=== PATIENT | female | born 1950 | race Asian ===

== ENCOUNTER 2019-12-14 09:03 | Day surgery (SDC) | payer OTHER ==
[2019-12-11 09:09] VITALS: BMI 23.8
[2019-12-14 10:02] VITALS: TEMP 97.9
--- NOTE | 2019-12-14 10:10 | HP ---
Satellite [facility] - Chief Complaint Chief Complaint: left wrist pain - Past Medical History Allergies/Adverse Reactions: Allergies Allergy/AdvReac Type Severity Reaction Status Date / Time No Known Allergies Allergy Verified 12/14/19 09:37 - Current Medications Current Medications: Home Medications Medication Instructions Recorded Amlodipine Besylate 10 mg PO HS 12/11/19 Metformin HCl [Glucophage] 1,000 mg PO DAILY 12/11/19 Simvastatin 40 mg PO HS 12/11/19 Hydrocodone/Acetaminophen 1 each PO Q6H #12 tablet MDD 4 12/14/19 [Hydrocodone-Acetamin 5-325 mg] Satellite Physical Exam - Physical Examination Vital Signs: Vital Signs Period Temp Pulse Resp BP Sys/Gerardo Pulse Ox Last 24 Hr 97.9 F 60 20 203/64 100 General Appearance: Well Nourished, Well Developed, Alert & Oriented x3 ENT: Clear Lung: Normal air movement Extremities: Other (left wrist- +ttp over first dorsal wrist compartment, + finkelsteins, nvi) Neurological: Intact, Alert, Oriented Satellite Impression/Plan - Impression/Plan Impression: left dequervains tenosynovitis Operative Procedure: left dequervains release Date to be Performed: 12/14/19
[2019-12-14] MEDS ORDERED: amLODIPine BESYLATE 10 MG TABLET (FP) PO ONE (10:45)
[2019-12-14] MEDS ORDERED: VALSARTAN 160 MG TABLET (UD) PO ONE (11:00)
[2019-12-14] MEDS ORDERED: MIDAZOLAM HCL 2 MG/2 ML SINGLE DOSE VIAL ONE (11:44)
[2019-12-14] MEDS ORDERED: ceFAZolin SODIUM 1 GM VIAL ONE (12:05)
[2019-12-14 12:21] VITALS: BP 201/62; PULSE 59
== END 2019-12-14 12:53 | disposition home or self-care (01) ==
LOC: FASU 09:03
PROVIDERS: ATTEND Orthopaedic Surgery
PROC: 0LN60ZZ Release Left Lower Arm and Wrist Tendon, Open Approach (ICD-10-PCS; principal; 2019-12-14)
DX: M65.4 Radial styloid tenosynovitis [de Quervain] (principal); Z53.09 Procedure and treatment not carried out because of other contraindication
CPT/HCPCS: 82962

== ENCOUNTER 2020-01-04 07:47 | Day surgery (SDC) | payer OTHER ==
[2020-01-01 15:36] VITALS: BMI 23.8
--- NOTE | 2020-01-04 08:00 | HP ---
Satellite [facility] - Chief Complaint Chief Complaint: left wrist pain - Past Medical History Allergies/Adverse Reactions: Allergies Allergy/AdvReac Type Severity Reaction Status Date / Time No Known Allergies Allergy Verified 12/14/19 09:37 - Current Medications Current Medications: Home Medications Medication Instructions Recorded Amlodipine Besylate 10 mg PO HS 12/11/19 Metformin HCl [Glucophage] 800 mg PO DAILY 12/11/19 Simvastatin 40 mg PO HS 12/11/19 Glipizide 10 mg PO DAILY 12/14/19 Ibuprofen 800 mg PO BID 12/14/19 Metoprolol Succinate 100 mg PO DAILY 12/14/19 Montelukast Sodium [Singulair] 10 mg PO DAILY 12/14/19 Olmesartan Medoxomil 40 mg PO DAILY 12/14/19 Omeprazole 40 mg PO DAILY 12/14/19 Ergocalciferol (Vitamin D2) 50 mcg PO DAILY 01/01/20 [Vitamin D2] Satellite Physical Exam - Physical Examination General Appearance: Well Nourished, Well Developed, Alert & Oriented x3 ENT: Clear Lung: Normal air movement Extremities: Other (left wrist- + ttp 1st doral comp, + finkelsteins, nvi) Neurological: Intact, Alert, Oriented Satellite Impression/Plan - Impression/Plan Impression: left dequervains tenosynovitis Operative Procedure: left dequervains release Date to be Performed: 01/04/20
[2020-01-04] MEDS ORDERED: KETOROLAC TROMETHAMINE 30 MG/1 ML VIAL ONE (08:44)
[2020-01-04] MEDS ORDERED: PROPOFOL 20 ML ONE ×2 (08:44→09:18)
[2020-01-04] MEDS ORDERED: LIDOCAINE HCL/PF 2% SDV 5ML VIAL ONE (08:45)
[2020-01-04] MEDS ORDERED: MIDAZOLAM HCL 2 MG/2 ML SINGLE DOSE VIAL ONE (08:46)
[2020-01-04] MEDS ORDERED: EPHEDRINE SULFATE/0.9% NACL/PF 50 MG/10 ML SYRINGE NR ONE (08:47)
[2020-01-04] MEDS ORDERED: LIDOCAINE HCL 1%, 10 MG/ML (20ML VIAL) ONE (09:18)
[2020-01-04] MEDS ORDERED: BUPIVACAINE HCL/PF 0.5% (5MG/ML) 10 ML VIAL ONE (09:18)
[2020-01-04] MEDS ORDERED: ceFAZolin SODIUM 1 GM VIAL ONE (09:44)
[2020-01-04] MEDS ORDERED: SODIUM CHLORIDE 0.9% P/F 10 ML VIAL IJ ONE (09:44)
--- NOTE | 2020-01-04 10:16 | OP ---
Operative Note - Note: Operative Date: 01/04/20 Pre-Operative Diagnosis: left Dequervain's Operation: left Dequervian's release, tendon sheath excision Post-Operative Diagnosis: Same as Pre-op Surgeon: Filemon Reyes Anesthesiologist/RESEARCH RECRUITER: Hayden Oquendo Anesthesia: Local, MAC Specimens Removed: tendon sheath Estimated Blood Loss (mls): 0 Drains, Volume Out (mls): 0 Blood Volume Replaced (mls): 0 Fluid Volume Replaced (mls): 700 Operative Report Dictated: Yes
[2020-01-04] MEDS ORDERED: oxyCODONE HCL 5 MG TABLET PO PRN ×2 (10:18)
[2020-01-04] MEDS ORDERED: ONDANSETRON 4 MG/2 ML VIAL IVPUSH PRN (10:18)
[2020-01-04 10:27] VITALS: TEMP 97.7
[2020-01-04] MEDS ORDERED: LACTATED RINGERS SOLUTION 1,000 ML IV SCH (10:30)
--- NOTE | 2020-01-04 10:44 | SPEC ---
DATE OF OPERATION: 01/04/2020 DATE OF DICTATION: 01/04/2020 PREOPERATIVE DIAGNOSIS: Left wrist de Quervain's tenosynovitis. POSTOPERATIVE DIAGNOSIS: Left wrist de Quervain's tenosynovitis. PROCEDURE: Left de Quervain's release and tendon sheath excision. SURGEON: Filemon Reyes MD LAWYER CRIMINAL: None. ANESTHESIA: MAC with local injection of 10 mL of 0.5% Marcaine and 1% lidocaine mix. DRAINS: None. COMPLICATIONS: None. BLOOD LOSS: None. BLOOD GIVEN: None. SPECIMEN: Tendon sheath, left wrist. PROCEDURE: After understanding the potential risks, complications, alternatives and benefits of surgery versus nonsurgical treatment, the patient elected to undergo this procedure. Patient was brought to the operating room, peripheral IV placed, IV sedation given. She received 2 g of IV Ancef preoperatively. MAC anesthesia was induced. The tourniquet was applied to the left arm. The entire care was done under 3.8 loop magnification. The left upper extremity was prepped and draped in a sterile fashion. A longitudinal incision was marked out with a marking pen. A mix of 10 mL of 0.5% Marcaine, 1% lidocaine was injected in and around the surgical area. The left upper extremity was then elevated, exsanguinated with an Esmarch bandage and the tourniquet inflated to 250 mmHg. A No. 15 scalpel blade was utilized to make a longitudinal incision. Subcutaneous hemostasis was achieved with a bipolar cautery. Dissection was done with a Littler scissors down to the first dorsal wrist compartment. Great care was taken to directly visualize and preserve all crossing sensory branches of the sensory nerve. Under direct visualization, the first dorsal wrist compartment was visualized and it was freed up from some adhesions with a [place] elevator. Next, a fresh No. 15 scalpel blade was utilized to open up the first dorsal wrist compartment, starting proximally and going distally, both with the No. 15 scalpel blade and also with a Littler scissors. The anatomy was seen to have multiple slips of the abductor pollicis longus and the extensor pollicis brevis was in its own tendon tunnel. This was also released and the wall between the two excised. The roof of the tunnel was excised. This was all passed off the field as specimen. The volar lip of the first dorsal wrist compartment was preserved to prevent volar subluxation. The release was completed both distally and proximally in both compartments. I was able to bring out all slips through the wound with a Ragnell retractor and there were no obvious points of compression. The area was copiously irrigated and washed out, again explored and I didn't see any other abnormal tissue and therefore closure was begun. Undyed 4-0 Vicryl was used to close the deep dermal layer. Final skin reapproximation was done with a running subcuticular 4-0 Biosyn stitch. The area was then washed and dried, covered with Steri-Strips, 4 x 4's, fluffs between the fingers, Webril and Coban used to make a thumb spica Coban splint. The tourniquet was taken down after a total tourniquet time of 15 minutes. There were no complications during the case. The patient tolerated the procedure quite well and was brought to ambulatory recovery room in stable condition. Link [id number]
[2020-01-04 11:28] VITALS: BP 160/70; PULSE 70
--- NOTE | 2020-01-08 18:44 | PATH ---
Surgical Pathology Report Patient Name: FARIDA SAMUEL [facility]. Rec. #: [id number] /Age/Gender: 1950 (Age: 69) / F Account: [id number] [facility] Taken: 01/04/2020 Received: 01/04/2020 Reported: 01/08/2020 Physicians: Filemon Reyes M.D. Specimen(s) Received LEFT HAND TENDON SHEATH Clinical History Left de Quervain's Final Diagnosis LEFT HAND TENDON SHEATH, EXCISION: TENDINOUS TISSUE WITH MILD CHRONIC INFLAMMATION AND REACTIVE CHANGE. Electronically Signed Jimmie Tejada M.D. Gross Description Received in formalin labeled "left hand tendon sheath," are two portion of soft tissue measuring 1.0 x 0.5 x 0.2cm in aggregate. The specimen is entirely submitted in one cassette. AMARILIS/01/05/2020 vinicius/01/05/2020
== END 2020-01-04 11:52 | disposition home or self-care (01) ==
LOC: FASU 07:47
PROVIDERS: ATTEND Orthopaedic Surgery
PROC: 0LN60ZZ Release Left Lower Arm and Wrist Tendon, Open Approach (ICD-10-PCS; principal; 2020-01-04 09:51)
DX: M65.4 Radial styloid tenosynovitis [de Quervain] (principal)
CPT/HCPCS: 82962; 88304-TC; 94760